=== PATIENT | female | born 1930 | race Caucasian/White ===

== ENCOUNTER 2017-04-24 17:25 | Inpatient (IN) | payer OTHER, MEDICAID ==
[~2017-04-24] VITALS: Ht 167.6 cm; Wt 74.8 kg
[2017-04-24 19:13] VITALS: BP_SYST 132
[2017-04-24 19:27] VITALS: BP_SYST 132
[2017-04-24 19:59] LABS: BASOPHILS % (AUTO) 0.8 % (0.0-2.0); EOSINOPHILS % (AUTO) 0.6 % (0.0-4.0); HEMATOCRIT 37.5 % (36-48); HEMOGLOBIN 12.4 g/dL (12.0-16.0); LYMPHOCYTES # (AUTO) 1.7 K/uL (1.0-5.5); LYMPHOCYTES % (AUTO) 28.4 % (20.5-51.5); MEAN CORPUSCULAR HEMOGLOBIN 29 pg (27-31); MEAN CORPUSCULAR HGB CONC 33 % (32-36); MEAN CORPUSCULAR VOLUME 88 fL (79.0-98.0); MONOCYTES # (AUTO) 0.2 K/uL (0.0-1.0); MONOCYTES % (AUTO) 3.4 % (1.7-9.3); NEUTROPHILS # (AUTO) 4.2 K/uL (1.8-7.7); NEUTROPHILS % (AUTO) 66.8 % (40.0-70.0); PLATELET COUNT (AUTO) 184 K/uL (130-430); RED BLOOD CELL COUNT(AUTO) 4.27 MIL/uL (4.2-6.2); RED CELL DISTRIBUTION WIDTH 14.2 % (9.0-15.0); WHITE BLOOD COUNT (AUTO) 6.1 K/uL (4.8-10.8)
[2017-04-24 20:15] LABS: ANION GAP 8 (5-15); CALCIUM 9.3 mg/dL (8.4-11.0); CHLORIDE 109 mmol/L (98-107); CREATININE 0.93 mg/dL (0.55-1.30); GLUCOSE 126 mg/dL (70-99); LIPASE 108 U/L (73-393); POTASSIUM 3.8 mmol/L (3.5-5.1); SODIUM SERUM 140 mmol/L (136-145); THYROID STIMULATING HORMONE 0.21 uIu/mL (0.34-4.82); UREA NITROGEN, BLOOD 14 mg/dL (8-21)
--- NOTE | 2017-04-24 21:00 | NUR ---
OPENING NOTES RECEIVED REPORT AT BEDSIDE FROM ADMIT NURSE. PATIENT IS ALERT AND ORIENTED X4. RESPIRATIONS ARE EVEN AND UNLABORED, LUNGS CLEAR. NEURO CHECKS PERFORMED, NO NEURO DEFICITS NOTED. PT ROOM CLOSE TO NURSING STATION. FALL PRECAUTIONS IN PLACE, BED ALARM ON, CALL LIGHT WITHIN REACH. FAMILY AT BEDSIDE. WILL CONTINUE TO MONITOR.
[2017-04-24 22:22] VITALS: BP_SYST 132
--- NOTE | 2017-04-24 23:00 | NUR ---
RN ROUNDS PATIENT IS SLEEPING COMFORTABLY, VISIBLE RISE AND FALL OF CHEST NOTED. NO S/S OF ACUTE DISTRESS NOTED. FALL PRECAUTIONS IN PLACE. CALL LIGHT WITHIN REACH. FAMILY AT BEDSIDE. WILL CONTINUE TO MONITOR.
--- NOTE | 2017-04-24 23:08 | NUR ---
Paged Dr Mccarthy for Alyse BARTON regarding orders
--- NOTE | 2017-04-24 23:16 | NUR ---
DR. SAMANIEGO RETURNED PAGE ORDERS PLACED.
[2017-04-24] MEDS ORDERED: AMLO1CAP6 PO (23:18)
[2017-04-24] MEDS ORDERED: MECL-110 PO (23:18)
[2017-04-24] MEDS ORDERED: OMEP40CA33 PO (23:18)
[2017-04-24] MEDS ORDERED: LORA0.5T PO (23:18)
[2017-04-24] MEDS ORDERED: MECLIZINE HCL 25 MG TABLET (ANITVERT) PO PRN (23:30)
[2017-04-24] MEDS ORDERED: LORazepam 1 MG TABLET PO PRN (23:30)
[2017-04-25] VITALS: BP_SYST 123
--- NOTE | 2017-04-25 | NUR ---
RN ROUNDS PATIENT SLEEPING, VISIBLE RISE AND FALL OF CHEST NOTED. NO S/S OF ACUTE DISTRESS. FALL PRECAUTIONS IN PLACE, BED ALARM ON, CALL LIGHT WITHIN REACH. WILL CONTINUE TO MONITOR.
--- NOTE | 2017-04-25 00:09 | NUR ---
SPOKE WITH [facility] FOR CONSULT WITH DR VELASCO.
[2017-04-25] MEDS ORDERED: MORPHINE 2 MG/ML INJ. SYRINGE IVP PRN (01:15)
[2017-04-25] MEDS: D5NS 1,000 ML IV SCH ×2 (01:15→17:41)
--- NOTE | 2017-04-25 01:45 | NUR ---
RN ROUNDS PATIENT IS AOX4, RESPIRATIONS ARE EVEN AND UNLABORED, LUNGS CLEAR. NEURO CHECKS PERFORMED, NO NEURO DEFICITS NOTED. NO ACUTE S/S OF DISTRESS NOTED. FALL PRECAUTIONS IN PLACE, BED ALARM ON, CALL LIGHT WITHIN REACH. FAMILY AT BEDSIDE. WILL CONTINUE TO MONITOR.
--- NOTE | 2017-04-25 02:00 | NUR ---
IV PLACEMENT: # 24 gauge angiocath placed to RIGHT HAND. Use of asceptic technique. Opsite placed over site. Blood return noted. Flushed with 10 cc of normal saline. No evidence of infiltration noted. Patient tolerated WELL.
--- NOTE | 2017-04-25 04:00 | NUR ---
RN ROUNDS PT. SLEEPING WITH VISIBLE RISE AND FALL OF CHEST NOTED. NO CHANGE IN CONDITION. NO S/S OF ACUTE DISTRESS NOTED.
[2017-04-25 04:01] VITALS: BP_SYST 138
--- NOTE | 2017-04-25 06:00 | NUR ---
RN ROUNDS PT. SLEEPING WITH VISIBLE RISE AND FALL OF CHEST NOTED. NO CHANGE IN CONDITION. NO S/S OF ACUTE DISTRESS NOTED.
--- NOTE | 2017-04-25 07:40 | NUR ---
OPENING NOTE PATIENT RESTING COMFORTABLY, NO COMPLAINTS OF PAIN AT THIS TIME. PATIENT HAS NO NOTABLE SIGNS OF DISTRESS AT THIS TIME. PATIENTS FAMILY IS AT BEDSIDE FOR COMFORT AND SMALL TRANSLATIONS. PATIENT IS AMBULATORY TO BATHROOM WITH ASSISTANCE. IV RUNNING PER MD ORDERS. PATIENTS BED IN LOWEST POSITION, CALL LIGHT WITHIN REACH, AND SIDE RAILS ARE UP FOR SAFETY. WILL CONTINUE TO MONITOR PATIENT FOR CHANGES IN STATUS.
--- NOTE | 2017-04-25 07:50 | NUR ---
CLOSING NOTES PATIENT IS RESTING. RESPIRATIONS ARE EVEN AND UNLABORED, LUNGS CLEAR. NEURO CHECKS PERFORMED, NO NEURO DEFICITS NOTED. PT ROOM CLOSE TO NURSING STATION. FALL PRECAUTIONS IN PLACE, BED ALARM ON, CALL LIGHT WITHIN REACH. FAMILY AT BEDSIDE. WILL ENDORSE CARE TO DAYSHIFT NURSE.
[2017-04-25 09:30] VITALS: BP_SYST 127
[2017-04-25] MEDS: OMEPRAZOLE 20 MG CAPSULE.DR (PriLOSEC) PO SCH ×2 (09:31→20:55)
[2017-04-25 12:27] VITALS: BP_SYST 130
--- NOTE | 2017-04-25 15:49 | NUR ---
CONSULT ENT VERTIGO DR JUAN M CROSS [phone] S/W [facility] OFFICE @ [phone]
[2017-04-25 16:09] VITALS: BP_SYST 129
--- NOTE | 2017-04-25 18:32 | NUR ---
CLOSING NOTE AWAITING TO GIVE REPORT TO TELEPHONE INSTALLER NURSE. PATIENT RESTING COMFORTABLY, NO COMPLAINTS OF PAIN AT THIS TIME. PATIENT HAS NO NOTABLE SIGNS OF DISTRESS AT THIS TIME. PATIENTS FAMILY IS AT BEDSIDE FOR COMFORT AND SMALL TRANSLATIONS. PATIENT IS AMBULATORY TO BATHROOM WITH ASSISTANCE. IV RUNNING PER MD ORDERS. PATIENTS BED IN LOWEST POSITION, CALL LIGHT WITHIN REACH, AND SIDE RAILS ARE UP FOR SAFETY. WILL CONTINUE TO MONITOR PATIENT FOR CHANGES IN STATUS. ALL NEEDS ARE MET AT THIS TIME.
--- NOTE | 2017-04-25 19:00 | NUR ---
PM Notes Received patient on bed, awake, alert and verbally responsive with family members at bedside noted. No sign of respiratory distress and no sign or complain of pain noted. IV site gauge 24 on right hand is intact and IVF infusing well at 60 cc/hr with no s/sx. of infiltration noted. Continue to monitor. All needs attended by staff. Call light within reach.
[2017-04-25 20:00] VITALS: BP_SYST 147
[2017-04-25] MEDS: BENAZEPRIL HCL 20 MG TABLET (LOTENSIN) PO SCH (20:56)
[2017-04-25] MEDS: amLODIPine BESYLATE 5 MG TABLET PO SCH (20:57)
--- NOTE | 2017-04-25 22:00 | NUR ---
PM Notes Patient on bed sleeping noted with family member at bedside noted. No sign of respiratory distress noted. Continue to monitor. Call light within reach.
[2017-04-26] VITALS (7 sets, daily range): BP systolic 97–124
--- NOTE | 2017-04-26 00:11 | NUR ---
PM Notes Patient on bed sleeping comfortably noted. IVF infusing well. Continue to monitor. Call light within reach.
--- NOTE | 2017-04-26 02:13 | NUR ---
Notes Patient on bed sleeping noted. No sign of respiratory distress noted. Continue to monitor. Call light within reach.
--- NOTE | 2017-04-26 04:04 | NUR ---
AM Notes Patient on bed, sleeping noted. No sign of respiratory distress and no complain of pain noted. Continue to monitor. Call light within reach.
--- NOTE | 2017-04-26 06:21 | NUR ---
Closing Notes Patient on bed sleeping noted. No sign of respiratory distress and no complain of pain noted. All needs attended by staff. Call light within reach.
--- NOTE | 2017-04-26 07:54 | NUR ---
OPENING NOTE: PT LAYING IN BED, SEMI FOWLERS. AWAKE AND ALERT, NO ACUTE SIGNS OF RESP DISTRESS, NO SOB. SKIN WARM DRY AND COLOR NORMAL FOR ETHNICITY. IV INTACT AND PATENT, NO REDNESS/SWELLING/PAIN TO SITE. BED AT LOWEST POSITION, CALL LIGHT IN REACH, SIDE RAILX3.
[2017-04-26] MEDS: OMEPRAZOLE 20 MG CAPSULE.DR (PriLOSEC) PO SCH ×2 (09:03→20:18)
--- NOTE | 2017-04-26 10:07 | NUR ---
ROUNDING: PT RESTING IN BED, NO ACUTE SIGNS OF RESP DISTRESS, NO SOB. SKIN COLOR NORMAL FOR ETHNICITY. IV INTACT AND PATENT, NO REDNESS/SWELLING/PAIN TO SITE. BED AT LOWEST POSITION, CALL LIGHT IN REACH. SIDE RAILX3. DENIES PAIN AT THIS TIME.
[2017-04-26] MEDS: D5NS 1,000 ML IV SCH (10:35)
[2017-04-26] MEDS ORDERED: GADOPENTETATE DIMEGLUMINE 15 ML VIAL IV ONE (10:57)
--- NOTE | 2017-04-26 11:19 | NUR ---
LEFT FOR MRI: LEFT TO MRI. NO ACUTE SIGNS OF RESP DISTRESS, NO SON. GRANDSON ACCOMPANIED.
--- NOTE | 2017-04-26 12:04 | NUR ---
BACK IN UNIT FROM MRI: PATIENT IS BACK IN THE UNIT FROM MRI. PT LAYING IN BED. NO ACUTE SIGNS OF RESP DISTRESS, NO SOB. SKIN WARM DRY AND COLOR NORMAL FOR ETHNICITY. IV INTACT, NO REDNESS/SWELLING/PAIN TO SITE. BED AT LOWEST POSITION, CALL LIGHT IN REACH. GRANDSON AT BEDSIDE.
--- NOTE | 2017-04-26 14:09 | NUR ---
ROUNDING: PT RESTING IN BED, NO ACUTE SIGNS OF RESP DISTRESS, NO SOB. SKIN COLOR NORMAL FOR ETHNICITY. IV INTACT AND PATENT, NO REDNESS/SWELLING/PAIN TO SITE. IVF INFUSING WELL. BED AT LOWEST POSITION, CALL LIGHT IN REACH, SIDE RAILX3.
--- NOTE | 2017-04-26 18:18 | NUR ---
IV RE-INSERTION: Complaining of pain to IV site. Restarted on . Successful after 1 attempts By resource nurse, Иван. Resumed current IVF of D5NS and regulated @ 60 per hour. Will observe for any signs of infiltration.
--- NOTE | 2017-04-26 18:18 | NUR ---
CLOSING NOTE: GRANDSON AT BEDSIDE. NO ACUTE SIGNS OF RESP DISTRESS, NO SOB. SKIN WARM DRY AND COLOR NORMAL FOR ETHNICITY. IV INTACT AND PATENT, NO REDNESS/SWELLING/PAIN TO SITE. IVF INFUSING WELL. BED AT LOWEST POSITION, CALL LIGHT IN REACH, SIDE RAILX3. WILL ENDORSE PLAN OF CARE TO ORALIA NELSON.
--- NOTE | 2017-04-26 19:00 | NUR ---
PM Notes Received patient on bed, awake, alert and verbally responsive with family members at bedside noted. No sign of respiratory distress and no complain of pain noted. IV site saline lock gauge 24 on left forearm is intact with no s/sx. of infiltration noted. Continue to monitor. All needs attended by staff. Call light within reach.
[2017-04-26] MEDS: BENAZEPRIL HCL 20 MG TABLET (LOTENSIN) PO SCH (20:17)
[2017-04-26] MEDS: amLODIPine BESYLATE 5 MG TABLET PO SCH (20:18)
--- NOTE | 2017-04-26 22:15 | NUR ---
PM Notes Patient on bed sleeping noted. No sign of respiratory distress noted. Continue to monitor. Call light within reach.
[2017-04-27] VITALS (7 sets, daily range): BP systolic 99–120
--- NOTE | 2017-04-27 00:16 | NUR ---
Notes Patient on bed sleeping noted. No sign of respiratory distress and no complain of pain noted. Continue to monitor. Call light within reach.
--- NOTE | 2017-04-27 02:11 | NUR ---
Notes Patient on bed sleeping noted. No complain of pain noted. Continue to monitor. Call light within reach.
--- NOTE | 2017-04-27 04:05 | NUR ---
Notes Patient on bed sleeping noted with no complain of pain noted. Continue to monitor. Call light within reach.
--- NOTE | 2017-04-27 06:24 | NUR ---
Closing Notes Patient on bed sleeping noted. No sign of respiratory distress and no complain of pain noted. All needs attended and met by staff. Call light within reach.
--- NOTE | 2017-04-27 07:20 | NUR ---
initial notes: patient on bed with daughter at bedside. Stable. Thai speaking. Discussed plan of care. Safety measures in placed. Call light within reach.
[2017-04-27] MEDS: OMEPRAZOLE 20 MG CAPSULE.DR (PriLOSEC) PO SCH ×2 (08:30→20:58)
--- NOTE | 2017-04-27 08:33 | NUR ---
rounds: patient on bed. at bedside. no distress noted.
--- NOTE | 2017-04-27 13:30 | NUR ---
rounds: patient on bed talking to family at bedside. no distress noted.
--- NOTE | 2017-04-27 15:12 | NUR ---
rounds: patient on bed sleeping. daughter at bedside.
--- NOTE | 2017-04-27 15:58 | NUR ---
rounds: patient denies pain, no hand shaking. comfortable resting on bed.
--- NOTE | 2017-04-27 17:37 | NUR ---
ROUNDS: Patient ambulatory going to the toilet.
--- NOTE | 2017-04-27 18:31 | NUR ---
Closing notes: patient on bed resting. stable. needs attended. safety measures in placed. daughter at bedside. call light within reach. report will be given to nightman.
--- NOTE | 2017-04-27 20:05 | NUR ---
INITIAL NOTES: PATIENT IN BED AWAKE ALERT ORIENTED X4,CONVERSING WITH FAMILIES AT BEDSIDE. ARABIC SPEAKING.VERBALIZED CAN GO TO RESTROOM TO VOID WITH ASSIST. DENIES DIZZINESS NOR SOB AND PAIN. SALINE LOCK PATENT.CALL LIGHT WITHIN REACH. BED IN LOW POSITION.TEACHINGS GIVEN ON SAFETY WITH UNDERSTANDING. WILL MONITOR CLOSELY.
[2017-04-27] MEDS: BENAZEPRIL HCL 20 MG TABLET (LOTENSIN) PO SCH (20:56)
[2017-04-27] MEDS: amLODIPine BESYLATE 5 MG TABLET PO SCH (20:57)
--- NOTE | 2017-04-27 21:00 | NUR ---
MEDS ADMIN: ALL DUE PO MEDS GIVEN WITHOUT DIFFICULTY, WITH VITAL SIGNS STABLE.
--- NOTE | 2017-04-27 22:00 | NUR ---
ASSISTED BY FAMILY TO BATHROOM TO VOID.TOLERATED WELL. DENIES DIZZINESS.
--- NOTE | 2017-04-28 | NUR ---
SLEEPING SOUNDLY. FAMILY AT BEDSIDE.
--- NOTE | 2017-04-28 02:40 | NUR ---
RESTING QUITELY, BREATHING PATTERN REGULAR.
--- NOTE | 2017-04-28 03:30 | NUR ---
VITAL SIGNS TAKEN .DENIES PAIN. BACK TO SLEEP AFTER.
[2017-04-28 03:45] VITALS: BP_SYST 120
--- NOTE | 2017-04-28 06:35 | NUR ---
CLOSING: ALL NEEDS MET. FAMILY AT BEDSIDE. SLEPT AT LONG INTERVALS. NO ACUTE DISTRESS.
[2017-04-28] MEDS: OMEPRAZOLE 20 MG CAPSULE.DR (PriLOSEC) PO SCH (07:54)
[2017-04-28 08:00] VITALS: BP_SYST 132
--- NOTE | 2017-04-28 08:00 | NUR ---
PATIENT A/OX3-4. GREENLANDIC SPEAKING. DAUGHTER AT BEDSIDE, AND POC IS EXPLAINED. CALL LIGHT IN PLACE, BED LOCKED AT THE LOWEST POSITION, WILL CONTINUE TO MONITOR.
--- NOTE | 2017-04-28 10:04 | NUR ---
Nutrition Update [place] Scale 18 noted. Pt admitted for dehydration. Diet: soft (low fiber/bland) BMI: 26.6 kg/m2 RD to follow per nutrition care standards.
[2017-04-28 11:06] VITALS: BP_SYST 132
[2017-04-28 12:51] VITALS: BP_SYST 129
--- NOTE | 2017-05-02 11:48 | NUR ---
Discharge Follow Up Phone Call MACHINE BILLER phoned patient, , and spoke with patient's son-in-law with whom she lives. He stated they have no questions or concerns and that patient will attend her follow up appointment with Dr Brit Mccarthy on 05/03/17 as scheduled.
== END 2017-04-28 12:10 | disposition home or self-care (01) | DRG 69 ==
LOC: SMU 18:37
PROVIDERS: ADMIT Internal Medicine Infectious Disease; ATTEND Internal Medicine Infectious Disease
DX: G45.9 Transient cerebral ischemic attack, unspecified (principal); E86.0 Dehydration; I73.9 Peripheral vascular disease, unspecified; I10 Essential (primary) hypertension; E78.5 Hyperlipidemia, unspecified; F41.9 Anxiety disorder, unspecified; M19.90 Unspecified osteoarthritis, unspecified site; M81.0 Age-related osteoporosis without current pathological fracture; M54.30 Sciatica, unspecified side; Z96.1 Presence of intraocular lens; G93.0 Cerebral cysts; G31.9 Degenerative disease of nervous system, unspecified; I99.8 Other disorder of circulatory system; K21.9 Gastro-esophageal reflux disease without esophagitis; K59.09 Other constipation; K58.9 Irritable bowel syndrome, unspecified; M79.7 Fibromyalgia; Z98.41 Cataract extraction status, right eye; Z87.11 Personal history of peptic ulcer disease; Z98.42 Cataract extraction status, left eye; Z87.442 Personal history of urinary calculi; Z90.49 Acquired absence of other specified parts of digestive tract; Z88.8 Allergy status to other drugs, medicaments and biological substances; Z83.3 Family history of diabetes mellitus
CPT/HCPCS: 70553; 71010; 76700-TC; 80048; 83690-TC; 84443-TC; 85025; 87040-TC; 97110-GP; 97116-GP; 97530-GP; A9579; J2270; J7042; J8597